=== PATIENT | male | born 1995 | race Caucasian/White ===

== ENCOUNTER 2020-10-15 04:00 | Emergency (ER) | payer SELFPAY ==
[~2020-10-15] VITALS: Ht 182.9 cm; Wt 96.0 kg
[2020-10-15 04:30] VITALS: BP 135/78
== END 2020-10-15 05:00 | disposition home or self-care (01) ==
LOC: ER 04:18
DX: F10.129 Alcohol abuse with intoxication, unspecified (principal); Y90.9 Presence of alcohol in blood, level not specified
CPT/HCPCS: 99283